=== PATIENT | female | born 1985 | race Native Hawaiian/Other Pacific Islander ===

== ENCOUNTER 2018-09-27 09:41 | Emergency (ER) | payer OTHER ==
[~2018-09-27] VITALS: Ht 175.3 cm; Wt 100.2 kg
[2018-09-27 11:08] LABS: PLATELET COUNT 379 K/uL (152-353)
[2018-09-27 11:21] LABS: POTASSIUM 3.7 mmol/L (3.6-5.2)
[2018-09-27 12:40] VITALS: BP 134/88; TEMP 97.6
== END 2018-09-27 12:40 | disposition home or self-care (01) ==
LOC: ED 09:41
PROVIDERS: Family Medicine
DX: N83.292 Other ovarian cyst, left side (principal); N83.291 Other ovarian cyst, right side
CPT/HCPCS: 36415; 80053; 81000; 85027; 96372; 99283; J1885

== ENCOUNTER 2018-11-17 08:06 | Outpatient (CLI) | payer OTHER | END 2018-11-17 21:33 | disposition home or self-care (01) | LOC: CT 08:06 | DX: R10.32 Left lower quadrant pain (principal) | CPT/HCPCS: Q9963 ==